=== PATIENT | female | born 1950 | race African-American/Black ===

== ENCOUNTER 2021-04-21 19:08 | Emergency (ER) | payer OTHER, MEDICARE ==
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
[2021-04-21 20:58] VITALS: BP 144/63
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
[2021-04-21] MEDS ORDERED: IBUPROFEN 400 MG TAB PO ONE (21:25)
== END 2021-04-21 22:11 | disposition home or self-care (01) ==
LOC: ED 19:08
DX: R51.9 Headache, unspecified (principal); M25.512 Pain in left shoulder; I11.0 Hypertensive heart disease with heart failure; I50.9 Heart failure, unspecified; Z79.899 Other long term (current) drug therapy; V87.7XXA Person injured in collision between other specified motor vehicles (traffic), initial encounter; Y93.89 Activity, other specified; Y92.488 Other paved roadways as the place of occurrence of the external cause; Y99.8 Other external cause status
CPT/HCPCS: 70450; 72125; 99284

== ENCOUNTER 2021-11-16 11:41 | Emergency (ER) | payer MEDICARE ==
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
[2021-11-16] MEDS ORDERED: ACETAMINOPHEN 325 MG TAB PO ONE (13:01)
[2021-11-16] MEDS ORDERED: METOCLOPRAMIDE 10 MG TAB PO ONE (13:01)
[2021-11-16] MEDS ORDERED: TETANUS,DIPH,PERTUSS(ACELL) VACCINE 0.5 ML SYRINGE IM ONE (13:01)
--- NOTE | 2021-11-16 15:12 | Emergency Department Report ---
ED General Adult HPI - General Chief complaint: Fall Stated complaint: FALL/LUMP TO HEAD Time Seen by Provider: 11/16/21 13:01 Source: patient, family, EMS ( EMS documentation not available at time of chart dictation ), RN notes reviewed Mode of arrival: Stretcher Limitations: No Limitations - History of Present Illness Initial comments: The patient was evaluated in the emergency department for symptoms described in the history of present illness. He/she was evaluated in the context of the global COVID-19 pandemic, which necessitated consideration that the patient might be at risk for infection with the virus that causes COVID-19. Institutional protocols and algorithms that pertain to the evaluation of patients at risk for COVID-19 are in a state of rapid change based on information released by regulatory bodies including the CDC and federal and state organizations. These policies and algorithms were followed during the patient's care in the emergency department. Please note that these policies, procedures and recommendations changed on a rapid basis. This is a pleasant and cooperative 70-year-old female who presents to the department today with a complaint of closed head injury, facial pain, nasal abrasion, and mild headache after mechanical trip and fall. She reports that prior to the fall she is in her usual state of health. After the fall, she has pain in her head, and face. The patient does not recall her last tetanus vaccination status. The patient denies extremity weakness and numbness. The patient felt improved after supportive medication here in the emergency room. Denies additional injuries and complaints, with the exception of a small right- sided knee abrasion. -: Sudden Location: head, face, right, lower extremity Severity scale (0 -10): 6 Consistency: constant Improves with: medication Worsens with: movement Associated Symptoms: denies other symptoms - Related Data Previous Rx's Medication Instructions Recorded Last Taken Type Cyclobenzaprine HCl [Flexeril 5 MG 5 mg PO TID PRN #30 tab 04/21/21 Unknown Rx TAB] HYDROcodone/APAP 5-325 [Union 1 each PO Q6HR PRN #10 tablet 04/21/21 Unknown Rx 5/325] Ibuprofen [Motrin 400 MG tab] 400 mg PO TID PRN #20 tablet 04/21/21 Unknown Rx Allergies Allergy/AdvReac Type Severity Reaction Status Date / Time No Known Allergies Allergy Verified 11/16/21 11:59 ED Review of Systems ROS: Stated complaint: FALL/LUMP TO HEAD Other details as noted in HPI Comment: All other systems reviewed and negative Musculoskeletal: myalgia Skin: other (Abrasions) Neurological: headache. denies: weakness, numbness, paresthesias ED Past Medical Hx - Past Medical History Hx Hypertension: Yes Hx Congestive Heart Failure: Yes - Social History Substance Use Type: None - Medications Home Medications: Home Medications Medication Instructions Recorded Confirmed Last Taken Type Cyclobenzaprine HCl [Flexeril 5 MG 5 mg PO TID PRN #30 tab 04/21/21 Unknown Rx TAB] HYDROcodone/APAP 5-325 [Union 1 each PO Q6HR PRN #10 tablet 04/21/21 Unknown Rx 5/325] Ibuprofen [Motrin 400 MG tab] 400 mg PO TID PRN #20 tablet 04/21/21 Unknown Rx ED Physical Exam - General Limitations: No Limitations General appearance: alert, anxious - Head Head exam: Present: normocephalic, other (There is a frontal forehead hematoma) - Eye Eye exam: Present: normal appearance, EOMI. Absent: nystagmus - ENT ENT exam: Present: normal exam, normal orophraynx, mucous membranes moist, TM's normal bilaterally, normal external ear exam, other (There is no nasal septal hematoma. There is no hemotympanums) - Neck Neck exam: Present: normal inspection, full ROM, other (There is no midline cervical spine tenderness) - Respiratory Respiratory exam: Present: normal lung sounds bilaterally. Absent: respiratory distress, wheezes, rales, rhonchi, stridor, decreased breath sounds - Cardiovascular Cardiovascular Exam: Present: regular rate, normal rhythm, normal heart sounds. Absent: bradycardia, tachycardia, irregular rhythm, systolic murmur, diastolic murmur, rubs, gallop - GI/Abdominal GI/Abdominal exam: Present: soft. Absent: distended, tenderness, guarding, rebound, rigid, pulsatile mass - Extremities Exam Extremities exam: Present: full ROM, other (2+ pulses noted in the bilateral upper and lower extremities. There is no palpable cord. negative Homans sign. Muscular compartments are soft. The pelvis is stable.). Absent: normal inspection (There is a nontender abrasion noted to the lateral aspect of the right knee.), tenderness, calf tenderness - Back Exam Back exam: Present: normal inspection. Absent: tenderness, CVA tenderness (R), CVA tenderness (L), paraspinal tenderness, vertebral tenderness - Neurological Exam Neurological exam: Present: alert, oriented X3, normal gait, other (No facial droop. Tongue midline. Extraocular movements intact bilaterally. Facial sensation intact to light touch in V1, V2, V3 distribution bilaterally. 5 and a 5 strength in 4 extremities. Sensation intact to light touch in 4 extremities.). Absent: motor sensory deficit - Psychiatric Psychiatric exam: Present: normal affect, normal mood - Skin Skin exam: Present: warm, dry, normal color, abrasion, ecchymosis. Absent: rash ED Course Vital Signs 11/16/21 11/16/21 11:55 12:51 Temperature 98.0 F Pulse Rate 71 Respiratory 18 Rate Blood Pressure 157/78 [Right] O2 Sat by Pulse 96 Oximetry ED Medical Decision Making - Lab Data Vital Signs 11/16/21 11/16/21 11:55 12:51 Temperature 98.0 F Pulse Rate 71 Respiratory 18 Rate Blood Pressure 157/78 [Right] O2 Sat by Pulse 96 Oximetry - EKG Data -: EKG Interpreted by [facility] EKG shows normal: sinus rhythm Rate: normal - EKG Data When compared to previous EKG there are: previous EKG unavailable 11/16/21 16:39 The EKG is interpreted at 12: 35 Sinus rhythm, 65 bpm. Normal axis, normal P wave axis, QTC 500 ms, PVC, no endorsement of chest pain, abnormal EKG, not a STEMI. - Radiology Data Radiology results: pending, report reviewed, image reviewed CT head/brain wo con INDICATION / CLINICAL INFORMATION: 70 years Female; fall closed head injjry. TECHNIQUE: Routine CT head without contrast. All CT scans at this location are performed using CT dose reduction for ALARA by means of automated exposure control. COMPARISON: None. 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 Otherwise, no acute hemorrhage, mass effect, midline shift, hydrocephalus, or acute, large territorial infarct. Minimal, diffuse cerebral and cerebellar atrophy. There are minimal areas of increased signal intensity on FLAIR imaging in the white matter of the cerebral hemispheres. These are nonspecific findings and may be related to microangiopathy (hypertension, diabetes, atherosclerosis), given the patient's age. CRANIOCERVICAL JUNCTION: No significant abnormality. O RBITS: No significant abnormality of visualized orbits. SINUSES / MASTOIDS: Moderate mucosal thickening seen in the right maxillary antrum, along with desiccated secretions. High attenuation material seen, which may be related to hemorrhagic or fungal component of sinusitis, or perhaps chronic secretions. ADDITIONAL FINDINGS: Subcutaneous hemorrhage suggested in the left frontal re gion without signs of underlying calvarial or facial fracture. Atherosclerotic disease is seen in the anterior and posterior circulation. IMPRESSION: 1. No focal mass, intracranial hemorrhage, hydrocephalus, or acute, large territorial infarct. Signer Name: Nael Ching MD, III Signed: 11/16/2021 3:20 PM Workstation Name: [id number] CT facial bones wo con INDICATION / CLINICAL INFORMATION: 70 years Female; fall facil trauma. TECHNIQUE: Thin cut axial images obtained. Sagittal and coronal reconstructions performed. All CT scans at this location are performed using CT dose reduction for ALARA by means of automated exposure control. COMPARISON: None available. FINDINGS: Subcutaneous soft tissue swelling seen in the left frontal region. No signs of underlying calvarial or facial bone fracture. Atherosclerotic disease is seen in the anterior circulation. Partial opacification of the right maxillary antrum seen-please see report from CT of the head performed same day for pertinent information. Mild mucosal thickening seen along the floor the left maxillary antrum. The infundibulum of the right ostiomeatal unit is occluded by mucosal thickening. Prominent soft tissue is seen in the vallecula, presumably related to lingual tonsillar tissue, which may be reactive. Please clinically correlate. Orbits and stranding soft tissues are otherwise grossly normal. IMPRESSION: 1. No definitive signs of acute bony facial trauma. Signer Name: Nael Ching MD, III Signed: 11/16/2021 3:23 PM Workstation Name: [id number] CT cervical spine wo con INDICATION / CLINICAL INFORMATION: 70 years Female; fall closed head injjry. TECHNIQUE: Axial CT images of the cervical spine were obtained. Sagittal and coronal reformatted images were produced. All CT scans at this location are performed using CT dose reduction for ALARA by means of automated exposure control. COMPARISON: 04/21/2021 FINDINGS: POST-SURGICAL CHANGES: None. ALIGNMENT: No significant abnormality. VERTEBRAE: No signs of fracture. Vertebral bodies are grossly normal in height throughout. Presumed bone island seen at C4. No other similar findings to suggest sclerotic metastasis. Mild to moderate osseous foraminal narrowing on the left at C4-5 and C5-6, related to uncinate and facet hypertrophy. Similar findings seen to a lesser degree on the right at C3-4, C4-5, and C5-6. Similar findings on prior. Mild, multilevel facet hypertrophy noted. INTRAVERTEBRAL DISCS: Disc space narrowing seen at C5-6. Prominent right paracentral disc protrusion with spondylosis seen at C6-7, which certainly could affect the right anterior hemicord. Similar findings seen on prior. Follow-up with MRI or myelography, as clinically warranted. PARASPINAL SOFT TISSUES: No significant abnormality. ADDITIONAL FINDINGS: Significant scarring-type changes and calcifications are seen in the right lung apex-not significant change from prior. Pacemaker/defibrillator wires noted on the left. Atherosclerotic disease suggested in the carotid bifurcation regions. There is also atherosclerotic disease seen in the aortic arch and at the origin of the great vessels. IMPRESSION: 1. No signs of acute bony trauma to the cervical spine. Signer Name: Nael Ching MD, III Signed: 11/16/2021 3:28 PM Workstation Name: [id number] - Medical Decision Making Differential diagnosis, including but not limited to: Concussion, closed head injury, abrasion, cervical spine injury, facial injury Assessment and plan: 70-year-old female, who is clinically sober, with a GCS of 15, presenting to the department with headache and facial pain and abrasions after mechanical trip and fall. She has multiple abrasions and hematomas. She is nontender in her lower extremities and she is ambulatory with a steady gait. She denies antecedent symptoms. Given advanced age and mechanism, a CT scan of the brain, facial bones, and cervical spine are obtained. No emergent traum atic findings are noted. The patient is observed in this department for hours without clinical decompensation. She felt improved after supportive therapy. She is given a tetanus vaccination. She is counseled to expect to be sore over the next few days. Return precautions are reviewed. All questions answered. Critical care attestation.: If time is entered above; I have spent that time in minutes in the direct care of this critically ill patient, excluding procedure time. ED Disposition Clinical Impression: Fall, Closed head injury, Facial abrasion, Abrasion of knee, right Disposition: 01 HOME / SELF CARE / HOMELESS Is pt being admited?: No Does the pt Need Aspirin: No Condition: Good Instructions: Head Injury, Adult, [id number] Additional Instructions: Please rest and avoid heavy lifting. Avoid strenuous physical activities. Alternate ice packs and heat packs as needed for physical pain. Please note that pain will get worse before gets better over the next few days. This is normal and expected. May take the Tylenol and/or Motrin as needed for physical pain. May take the Reglan medication as needed for headache, nausea and vomiting. Please avoid consumption of alcohol, tobacco, smoke products, and sedating medications Please follow-up with your primary care doctor within the next week. Please take the prescribed medications as needed and directed. Please return to the emergency room right away with new pain, worsened pain, migration of pain, projectile vomiting, change in mental status, confusion, inability tolerate liquid feeds, new, worsened or different symptoms not present on the initial emergency room evaluation Referrals: [facility] [Provider Group] - 3-5 Days
--- NOTE | 2021-11-16 16:24 | Cat Scan Report ---
CT head/brain wo con INDICATION / CLINICAL INFORMATION: 70 years Female; fall closed head injjry. TECHNIQUE: Routine CT head without contrast. All CT scans at this location are performed using CT dos e reduction for ALARA by means of automated exposure control. COMPARISON: None. 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 Otherwise, no acute hemorrhage, mass effect, midline shift, hydrocephalus, or acute, large territori al infarct. Minimal, diffuse cerebral and cerebellar atrophy. There are minimal areas of increased signal intensity on FLAIR imaging in the white matter of the cer ebral hemispheres. These are nonspecific findings and may be related to microangiopathy (hypertension , diabetes, atherosclerosis), given the patient's age. CRANIOCERVICAL JUNCTION: No significant abnormality. ORBITS: No significant abnormality of visualized orbits. SINUSES / MASTOIDS: Moderate mucosal thickening seen in the right maxillary antrum, along with desicc ated secretions. High attenuation material seen, which may be related to hemorrhagic or fungal compon ent of sinusitis, or perhaps chronic secretions. ADDITIONAL FINDINGS: Subcutaneous hemorrhage suggested in the left frontal region without signs of un derlying calvarial or facial fracture. Atherosclerotic disease is seen in the anterior and posterior circulation. IMPRESSION: 1. No focal mass, intracranial hemorrhage, hydrocephalus, or acute, large territorial infarct. Signer Name: Nael Ching MD, III Signed: 11/16/2021 4:20 PM Workstation Name: [id number]
--- NOTE | 2021-11-16 16:28 | Cat Scan Report ---
CT facial bones wo con INDICATION / CLINICAL INFORMATION: 70 years Female; fall facil trauma. TECHNIQUE: Thin cut axial images obtained. Sagittal and coronal reconstructions performed. All CT scans at this location are performed using CT dose reduction for ALARA by means of automated exposure control. COMPARISON: None available. FINDINGS: Subcutaneous soft tissue swelling seen in the left frontal region. No signs of underlying calvarial o r facial bone fracture. Atherosclerotic disease is seen in the anterior circulation. Partial opacification of the right maxillary antrum seen-please see report from CT of the head perfor med same day for pertinent information. Mild mucosal thickening seen along the floor the left maxilla ry antrum. The infundibulum of the right ostiomeatal unit is occluded by mucosal thickening. Prominent soft tissue is seen in the vallecula, presumably related to lingual tonsillar tissue, which may be reactive. Please clinically correlate. Orbits and stranding soft tissues are otherwise grossly normal. IMPRESSION: 1. No definitive signs of acute bony facial trauma. Signer Name: Nael Ching MD, III Signed: 11/16/2021 4:23 PM Workstation Name: [id number]
--- NOTE | 2021-11-16 16:33 | Cat Scan Report ---
CT cervical spine wo con INDICATION / CLINICAL INFORMATION: 70 years Female; fall closed head injjry. TECHNIQUE: Axial CT images of the cervical spine were obtained. Sagittal and coronal reformatted images were pr oduced. All CT scans at this location are performed using CT dose reduction for ALARA by means of aut omated exposure control. COMPARISON: 04/21/2021 FINDINGS: POST-SURGICAL CHANGES: None. ALIGNMENT: No significant abnormality. VERTEBRAE: No signs of fracture. Vertebral bodies are grossly normal in height throughout. Presumed bone island seen at C4. No other similar findings to suggest sclerotic metastasis. Mild to moderate osseous foraminal narrowing on the left at C4-5 and C5-6, related to uncinate and fa cet hypertrophy. Similar findings seen to a lesser degree on the right at C3-4, C4-5, and C5-6. Simil ar findings on prior. Mild, multilevel facet hypertrophy noted. INTRAVERTEBRAL DISCS: Disc space narrowing seen at C5-6. Prominent right paracentral disc protrusion with spondylosis seen at C6-7, which certainly could affe ct the right anterior hemicord. Similar findings seen on prior. Follow-up with MRI or myelography, as clinically warranted. PARASPINAL SOFT TISSUES: No significant abnormality. ADDITIONAL FINDINGS: Significant scarring-type changes and calcifications are seen in the right lung apex-not significant change from prior. Pacemaker/defibrillator wires noted on the left. Atherosclerotic disease suggested in the carotid bifurcation regions. There is also atherosclerotic d isease seen in the aortic arch and at the origin of the great vessels. IMPRESSION: 1. No signs of acute bony trauma to the cervical spine. Signer Name: Nael Ching MD, III Signed: 11/16/2021 4:28 PM Workstation Name: [id number]
[2021-11-16 17:56] VITALS: BP 158/86
--- NOTE | 2021-11-18 17:18 | Electrocardiograph Report ---
[facility] Test Date: 2021-11-16 Test Time: 12:35:59 Pat Name: NEIDA MENDEZ Department: Room: Gender: F Transfer Man: NURSE : 1950 Requested By: DAYNA KUMAR Order Number: [id number] Reading MD: Ruthann Seymour Measurements Intervals [place] Rate: 65 P: 39 WI: 182 QRS: 36 QRSD: 104 T: 96 QT: 480 QTc: 500 Interpretive Statements Sinus rhythm Ventricular premature complex Nonspecific repol abnormality, diffuse leads No previous ECG available for comparison Electronically Signed On 11-18-2021 17:17:48 EDT by Ruthann Seymour
== END 2021-11-16 18:20 | disposition home or self-care (01) ==
LOC: ED 11:41
DX: S00.81XA Abrasion of other part of head, initial encounter (principal); S09.90XA Unspecified injury of head, initial encounter; S80.211A Abrasion, right knee, initial encounter; I11.0 Hypertensive heart disease with heart failure; I50.9 Heart failure, unspecified; Z79.899 Other long term (current) drug therapy; W01.0XXA Fall on same level from slipping, tripping and stumbling without subsequent striking against object, initial encounter; Y93.89 Activity, other specified; Y92.89 Other specified places as the place of occurrence of the external cause; Y99.8 Other external cause status
CPT/HCPCS: 70450; 70486; 72125; 90471; 90715; 93005; 99284